=== PATIENT | female | born 1995 | race African-American/Black ===

== ENCOUNTER 2017-03-12 10:31 | Emergency (ER) | payer SELFPAY ==
[~2017-03-12] VITALS: Ht 157.5 cm; Wt 59.0 kg
[~2017-03-12 10:31] MED LIST: BENADRYL25 M3 PO; FLAGYL500 MG ORAL; IBUPROFEN600 MG ORAL; LEVAQUIN500 MG ORAL; MEDROL DOSEPAK4 MG ORAL; METRONIDAZOLE500 MG ORAL; NKM; TRIAMCINOLONE A60 ML TP
[2017-03-12 11:24] LABS: APPEARANCE,URINE SLIGHTLY CLOUDY; KETONES,URINE NEGATIVE (NEGATIVE); LEUKOCYTE ESTERASE ,URINE 1+ (NEGATIVE); NITRITE,URINE NEGATIVE (NEGATIVE); PH,URINE 6 (4.5-8.0); PROTEIN,URINE NEGATIVE (NEGATIVE); UROBILINOGEN,URINE 1 MG/DL (0.0-1.0)
[2017-03-12] MEDS ORDERED: METRONIDAZOLE500 MG ORAL (11:24)
[2017-03-12 11:30] VITALS: BP 107/80
--- NOTE | 2017-03-12 11:37 | Emergency Room Report ---
History of Present Illness General Chief Complaint: Female Urogenital Problems Source: Patient Present Illness HPI 22YOF with vaginal discharge for 2 days. States its similar to recurrent BV. Has changed sexual partners. Doesnt use condoms. 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 Recommended going to ER for recurrent symptoms to be "treated again." Denies abd pain, nausea/vomiting, diarrrhea, fever/chills, dysuria, polyuria, flank pain. Allergies: Coded Allergies: No Known Allergies (Unverified , 01/05/14) Patient History Past Medical History: none Past Surgical History: none Pertinent Family History: none Social History: Denies: alcohol use, drug use, smoking Last Menstrual Period: 1 year ago- control implant Now: No : 0 Para: 0 Immunizations: UTD Reviewed Nursing Documentation: PMH: Agreed, PSxH: Agreed Nursing Documentation-PMH Past Medical History: No Stated History Review of Systems All Other Systems: negative except mentioned in HPI Physical Exam Vital Signs Date Time Temp Pulse Resp B/P Pulse Ox O2 Delivery O2 Flow Rate FiO2 03/12/17 10:52 98.8 75 16 113/77 99 Room Air Sp02 EP Interpretation: reviewed, normal General Appearance: normal inspection, well appearing, no apparent distress, alert, GCS 15, non-toxic Head: normocephalic, atraumatic Eyes: bilateral eye EOMI, bilateral eye PERRL ENT: normal ENT inspection, hearing grossly normal, normal voice Neck: normal inspection, full range of motion, supple, no bony tend Respiratory: normal inspection, lungs clear, normal breath sounds, no respiratory distress, no retraction, no wheezing Cardiovascular #1: regular rate, rhythm, no edema Gastrointestinal: normal inspection, normal bowel sounds, non tender, soft, no guarding, no hernia Genitourinary: no CVA tenderness Neurologic: normal inspection, alert, oriented x3, responsive, 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 nml as tested, motor strength/tone normal, speech normal Psychiatric: normal inspection, judgement/insight normal, mood/affect normal Skin: normal inspection, normal color, no rash Medical Decision Making Diagnostic Impression: Primary Impression: [id number] ER Course Negative urine test Will tx empirically for recurrent BV based on HPI Rx Flagyl Advised avoidance of ETOH Advised condom use DC home Last Vital Signs Date Time Temp Pulse Resp B/P Pulse Ox O2 Delivery O2 Flow Rate FiO2 03/12/17 10:52 98.8 75 16 113/77 99 Room Air Status: improved Disposition: HOME, SELF-CARE Condition: Improved Scripts Metronidazole* (FLAGYL*) 500 Mg Tablet 500 MG ORAL BID for 7 Days, #14 TAB Prov: TOPHER BENAVIDEZ M.D. 03/12/17 Patient Instructions: Bacterial Vaginosis, [id number] TOPHER BENAVIDEZ M.D. March 12, 2017 11:37
[2017-03-12 11:47] LABS: BACTERIA,URINE FEW /HPF; MUCUS,URINE MANY /LPF (NONE/OCC); RBC,URINE 0-2 /HPF (0 - 2); SQUAMOUS EPITHELIAL CELL,UR MANY /LPF (NONE/OCC)
== END 2017-03-12 11:37 | disposition home or self-care (01) ==
LOC: EMR 10:58
DX: N76.0 Acute vaginitis (principal)
CPT/HCPCS: 81003; 81025; 99283

== ENCOUNTER 2019-06-19 00:26 | Emergency (ER) | payer OTHER ==
[~2019-06-19] VITALS: Ht 157.5 cm; Wt 65.8 kg
[2019-06-19 00:35] VITALS: BP 135/76
--- NOTE | 2019-06-19 00:40 | NUR ---
ED Nurse Note: Patient walked in to ERb c/o vaginal dc since yesterday. AAO x4, VSS at this time.
[2019-06-19] MEDS ORDERED: METRONIDAZOLE500 MG ORAL (00:54)
[2019-06-19] MEDS ORDERED: FLUCONAZOLE100 MG ORAL (00:54)
--- NOTE | 2019-06-19 00:54 | Emergency Room Report ---
History of Present Illness General Chief Complaint: Vaginal Source: Patient Present Illness HPI Is a 24-year-old female with no past medical history. She has a history of BV and yeast infection in the past. She presents with chief complaint of vaginal discomfort and discharge. Ongoing for about a week now. She says she has a thick cottage cheesy discharge and odor to it. She is sexually active and has no history of STD in the past. She is convinced that this is BV and yeast infection. No nausea no vomiting. No dysuria frequency. No hematuria. Allergies: Coded Allergies: No Known Allergies (Unverified , 01/05/14) Patient History Past Medical History: see triage record, old chart reviewed Past Surgical History: none Pertinent Family History: none Social History: Denies: smoking Last Menstrual Period: 05/03/19 Now: No : 0 Para: 0 Immunizations: other Reviewed Nursing Documentation: PMH: Agreed; PSxH: Agreed Nursing Documentation-PMH Past Medical History: No Stated History Review of Systems Eye: Denies: eye pain, blurred vision ENT: Denies: ear pain, nose congestion, throat swelling Respiratory: Denies: cough, shortness of breath Cardiovascular: Denies: chest pain, palpitations Gastrointestinal: Denies: abdominal pain, diarrhea, nausea, vomiting Genitourinary: Reports: vag bleed/dc Musculoskeletal: Denies: back pain, joint pain Skin: Denies: rash Neurological: Denies: headache, numbness Endocrine: Denies: increased thirst, increased urine Hematologic/Lymphatic: Denies: easy bruising All Other Systems: negative except mentioned in HPI Physical Exam Vital Signs Date Time Temp Pulse Resp B/P (MAP) Pulse Ox O2 Delivery O2 Flow Rate FiO2 06/19/19 00:39 98.4 84 17 119/75 (90) 96 Room Air Vitals normal Sp02 EP Interpretation: reviewed, normal General Appearance: well appearing, no apparent distress, alert Head: normocephalic, atraumatic Eyes: bilateral eye PERRL, bilateral eye EOMI ENT: hearing grossly normal, normal pharynx Neck: full range of motion, supple, no meningismus Respiratory: chest non-tender, lungs clear, normal breath sounds Cardiovascular #1: regular rate, rhythm, no murmur Gastrointestinal: normal bowel sounds, non tender, no mass, no organomegaly, no bruit, non-distended Musculoskeletal: back normal, gait/station normal, normal range of motion Psychiatric: mood/affect normal Medical Decision Making Diagnostic Impression: Primary Impression: Vaginitis Qualified Codes: N76.0 - Acute vaginitis ER Course Patient presents with a vaginitis. She does not want to have a pelvic exam and a wet prep done. She wants to get treated with medication. She said that she normally gets yeast infection after antibiotics. Last Vital Signs Date Time Temp Pulse Resp B/P (MAP) Pulse Ox O2 Delivery O2 Flow Rate FiO2 06/19/19 00:39 98.4 84 17 119/75 (90) 96 Room Air Status: unchanged Disposition: HOME, SELF-CARE Condition: Stable Scripts Fluconazole (FLUCONAZOLE) 100 Mg Tablet 100 MG ORAL DAILY, #1 TAB 0 Refills Prov: Jayesh Lovelace MD 06/19/19 Metronidazole* (FLAGYL*) 500 Mg Tablet 500 MG ORAL BID, #14 TAB Prov: Jayesh Lovelace MD 06/19/19 Additional Instructions: Follow-up with your doctor in 7 days. Return if symptoms worsen. Jayesh Lovelace MD Jun 19, 2019 00:54
[2019-06-19 00:58] VITALS: BP 135/65
--- NOTE | 2019-06-19 01:01 | NUR ---
ED Nurse Note: Pt cleared by health care Provider for discharge. DC instructions/prescription was given and explained to pt and verbalized understanding of teachings. All medical deviecs such as ID band removed. Pt is AAO x4, ambulatory and left with all personal belongings.
== END 2019-06-19 01:03 | disposition home or self-care (01) ==
LOC: EMR 00:45
DX: N76.0 Acute vaginitis (principal)
CPT/HCPCS: 99282

== ENCOUNTER 2019-09-06 21:22 | Emergency (ER) | payer OTHER ==
[~2019-09-06] VITALS: Ht 157.5 cm; Wt 65.8 kg
[~2019-09-06 21:22] MED LIST changes: +FLUCONAZOLE100 MG ORAL
[2019-09-06 21:34] VITALS: BP 130/89
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
[2019-09-06] MEDS ORDERED: NAPROXEN250 MG ORAL (22:08)
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
[2019-09-06 22:15] VITALS: BP 130/89
[2019-09-06] MEDS ORDERED: Acetaminophen 500mg (ES) tab ORAL ONE (22:15)
--- NOTE | 2019-09-06 22:15 | NUR ---
ED Nurse Note: Pt cleared by ERMD for discharge. DC instructions/prescription was given and explained to pt and verbalized understanding of teachings. All medical deviecs such as ID band removed. Pt is AAO x4, ambulatory and left with all personal belongings.
[2019-09-07] MEDS ORDERED: LIDODERM700 M1 TOPIC (20:02)
[2019-09-07] MEDS ORDERED: ROBAXIN-750750 MG PO (20:02)
== END 2019-09-06 22:15 | disposition home or self-care (01) ==
LOC: EMR 21:36
DX: S30.0XXA Contusion of lower back and pelvis, initial encounter (principal); V43.52XA Car driver injured in collision with other type car in traffic accident, initial encounter; Y92.410 Unspecified street and highway as the place of occurrence of the external cause
CPT/HCPCS: 81025; 99282

== ENCOUNTER 2019-09-07 19:20 | Emergency (ER) | payer OTHER ==
[~2019-09-07] VITALS: Ht 157.5 cm; Wt 65.8 kg
[~2019-09-07 19:20] MED LIST changes: +NAPROXEN250 MG ORAL
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
[2019-09-07 19:48] VITALS: BP 127/85
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
[2019-09-07] MEDS ORDERED: LIDODERM700 M1 TOPIC (20:02)
[2019-09-07] MEDS ORDERED: ROBAXIN-750750 MG PO (20:02)
[2019-09-07 20:07] VITALS: BP 127/85
--- NOTE | 2019-09-07 20:07 | NUR ---
ER DISCHARGE NOTE: Patient is cleared to be discharged per ERMD, pt is aox4, on room air, with stable vital signs. pt was given dc and prescription instructions, pt was able to verbalize understanding, pt id band removed. pt is able to ambulate with steady gait. pt took all belongings.
== END 2019-09-07 20:07 | disposition home or self-care (01) ==
LOC: EMR 19:58
DX: M54.5 Low back pain (principal)
CPT/HCPCS: 99282

== ENCOUNTER 2019-11-21 00:32 | Emergency (ER) | payer OTHER ==
[~2019-11-21] VITALS: Ht 157.5 cm; Wt 68.0 kg
[~2019-11-21 00:32] MED LIST changes: +LIDODERM700 M1 TOPIC; +ROBAXIN-750750 MG PO
--- NOTE | 2019-11-21 00:42 | NUR ---
ED Nurse Note: PT WALKED IN TO ED FOR C/O FOUL ODOR VAGINAL DISCHARGE X 1 MONTH. DENIES ANY VAGINAL BLEEDING.
[2019-11-21 00:43] VITALS: BP 130/80
[2019-11-21] MEDS ORDERED: FLUCONAZOLE150 MG ORAL (00:57)
[2019-11-21] MEDS ORDERED: METRONIDAZOLE500 MG ORAL (00:57)
--- NOTE | 2019-11-21 00:57 | Emergency Room Report ---
History of Present Illness General Chief Complaint: Female Urogenital Problems Source: Patient Present Illness [facility] This a 24-year-old female with no past medical history. She is history of recurrent bacterial vaginosis. She presents with chief complaint of discharge. She said whitish in nature. Similar to previous episode. Normally get Flagyl and Diflucan because she gets yeast infection after the Flagyl. No nausea no vomiting. She is sexually active with on and off protection. Denies being . No history of STD. She claimed that she has previous testing for BV from [place] doctor before. No pain. No dysuria frequency. Allergies: Coded Allergies: No Known Allergies (Unverified , 01/05/14) Patient History Past Medical History: see triage record, old chart reviewed Past Surgical History: none Pertinent Family History: none Social History: Denies: smoking Last Menstrual Period: 10/10/19 Now: No Immunizations: other Reviewed Nursing Documentation: PMH: Agreed; PSxH: Agreed Nursing Documentation-PMH Past Medical History: No Stated History Review of Systems Eye: Denies: eye pain, blurred vision ENT: Denies: ear pain, nose congestion, throat swelling Respiratory: Denies: cough, shortness of breath Cardiovascular: Denies: chest pain, palpitations Gastrointestinal: Denies: abdominal pain, diarrhea, nausea, vomiting Genitourinary: Reports: vag bleed/dc Musculoskeletal: Denies: back pain, joint pain Skin: Denies: rash Neurological: Denies: headache, numbness Endocrine: Denies: increased thirst, increased urine Hematologic/Lymphatic: Denies: easy bruising All Other Systems: negative except mentioned in HPI Physical Exam Vital Signs Date Time Temp Pulse Resp B/P (MAP) Pulse Ox O2 Delivery O2 Flow Rate FiO2 11/21/19 00:37 98.1 88 18 122/77 (92) 99 Room Air Vitals normal Sp02 EP Interpretation: reviewed, normal General Appearance: well appearing, no apparent distress, alert Head: normocephalic, atraumatic Eyes: bilateral eye PERRL, bilateral eye EOMI ENT: hearing grossly normal, normal pharynx Neck: full range of motion, supple, no meningismus Respiratory: chest non-tender, lungs clear, normal breath sounds Cardiovascular #1: regular rate, rhythm, no murmur Gastrointestinal: normal bowel sounds, non tender, no mass, no organomegaly, no bruit, non-distended Musculoskeletal: back normal, normal range of motion, gait/station normal Psychiatric: mood/affect normal Medical Decision Making Diagnostic Impression: Primary Impression: Vaginal discharge ER Course Patient presents with a vaginal discharge. I recommend pelvic exam but patient refused. She does not want to stay for it. She has been here 8 times for the same thing since 2013. No wet mount was done. Explained to the patient that we should get definitive diagnostic study to make sure she does have BV and not trichomonas or yeast infection. Last Vital Signs Date Time Temp Pulse Resp B/P (MAP) Pulse Ox O2 Delivery O2 Flow Rate FiO2 11/21/19 00:43 98.1 82 17 130/80 99 Room Air Status: unchanged Disposition: HOME, SELF-CARE Condition: Stable Scripts Fluconazole (FLUCONAZOLE) 150 Mg Tablet 150 MG ORAL DAILY, #1 TAB 0 Refills Prov: Jayesh Lovelace MD 11/21/19 Metronidazole* (FLAGYL*) 500 Mg Tablet 500 MG ORAL BID, #14 TAB Prov: Jayesh Lovelace MD 11/21/19 Patient Instructions: Vaginitis Additional Instructions: Follow-up with your doctor in 7 days. Recommend outpatient testing for HIV, hepatitis, syphilis, and other STDs. Recommend definitive treatment to confirm BV infection. Return if worse. Jayesh Lovelace MD Nov 21, 2019 00:57
[2019-11-21 01:00] VITALS: BP 128/77
--- NOTE | 2019-11-21 01:00 | NUR ---
ER DISCHARGE NOTE: Patient is cleared to be discharged per ERMD, pt is aox4, on room air, with stable vital signs. pt was given dc and prescription instructions, pt was able to verbalize understanding, pt id band removed without complications. pt is able to ambulate with steady gait. pt took all belongings.
== END 2019-11-21 01:00 | disposition home or self-care (01) ==
LOC: EMR 01:00
DX: N89.8 Other specified noninflammatory disorders of vagina (principal)
CPT/HCPCS: 99282